=== PATIENT | male | born 1990 | race Caucasian/White ===

== ENCOUNTER 2023-08-02 12:50 | Emergency (ER) | payer OTHER, SELFPAY ==
[2023-08-02 13:00] VITALS: BP 161/89; PULSE 89; TEMP 37.7; O2SAT 99; BMI 43.2
[2023-08-02 13:31] LABS: Influenza Virus A Antigen Negative; Influenza Virus B Antigen Negative; Internal Control Within Normal Limits
--- NOTE | 2023-08-02 13:35 | PC.NURSE ---
no vomiting at this time while in ER, call light in reach and told not to eat or drink anything until seen by
--- NOTE | 2023-08-02 13:38 | ED.NAVMDI1 ---
HPI - Nausea/Vomiting/Diarrhea General Chief complaint: Nausea/Vomiting/Diarrhea Stated complaint: NAUSEA/VOMITING/DIARRHEA Time Seen by Provider: 08/02/23 13:35 Source: patient Mode of arrival: walk-in History of Present Illness HPI Narrative: The patient presenting to us with a few hours history of nausea vomiting and diarrhea that started this morning after he ate some pizza that he had outside for a while. The patient denies any abdominal pain no fever or chills or any cough Related Data Previous Rx's ?Medication ?Instructions ?Recorded ondansetron HCl 4 mg tablet 4 mg PO Q8H PRN nausea and 08/02/23 vomiting 2 days #7 tabs Allergies Allergy/AdvReac Type Severity Reaction Status Date / Time No Known Drug Allergies Allergy Verified 08/02/23 13:03 Review of Systems ROS Status of ROS 10 or more systems reviewed and unremarkable except as noted in history and below Exam Narrative Exam Narrative: Nurses notes and vital signs reviewed and patient is not hypoxic. General: Well-appearing and in no apparent distress. Skin: Warm, dry, no pallor noted. No rash. Head: Normocephalic, atraumatic. Neck: Supple, non-tender. Eye: Pupils are equal, round and EOMI. No scleral icterus. Ears, Nose, Mouth, and Throat: TM are clear, no nasal mucosal hypertrophy. Oral mucosa is moist, no posterior oropharynx erythema, uvula is mid-line Cardiovascular: Regular Rate and Rhythm without murmur, gallop or rub. Respiratory: No accessory muscle use or respiratory distress. Lungs are clear to auscultation, no wheezing, rales or rhonchi Chest Wall: no tenderness Back: No midline thoracic or lumbar vertebral tenderness. No CVA tenderness Musculoskeletal: normal ROM, no calf or popliteal tenderness, no lower extremity edema/swelling GI: Abdomen is soft, non-distended. Normal bowel sounds. No masses appreciated. No tenderness to palpation. No rebound, guarding, or rigidity noted. Neurological: A&O x4. No cranial nerve dysfunction observed. No truncal ataxia. Moves all extremities. Sensation intact. Psychiatric: Cooperative and interactive. Normal mood and affect. Constitutional Vital Signs, click to edit/add: Last Vital Signs Temp 99.8 F 08/02/23 13:00 Pulse 89 08/02/23 13:00 Resp 18 08/02/23 13:00 BP 161/89 H 08/02/23 13:00 Pulse Ox 99 08/02/23 13:00 Course Vital Signs Vital signs: Vital Signs Temperature 99.8 F 08/02/23 13:00 Pulse Rate 89 08/02/23 13:00 Respiratory Rate 18 08/02/23 13:00 Blood Pressure 161/89 H 08/02/23 13:00 Pulse Oximetry 99 08/02/23 13:00 Temperature 99.8 F 08/02/23 13:00 Pulse Rate 89 08/02/23 13:00 Respiratory Rate 18 08/02/23 13:00 Blood Pressure 161/89 H 08/02/23 13:00 Pulse Oximetry 99 08/02/23 13:00 MDM - Nausea/Vomiting/Diarrhea MDM Narrative Medical decision making narrative: The patient was provided with Zofran after which he had a p.o. challenge. The patient is to continue supportive care at home The patient is to follow up with primary care physician in next 2-3 days or to return to the emergency department should any of the signs or symptoms worsen or new symptoms develop. The patient agrees with the following Diagnosis and Treatment plan and the patient will be discharged home. Lab Data Labs: Lab Results 08/02/23 Range/Units 13:04 Influenza Type A Ag Negative Influenza Type B Ag Negative Discharge Plan Discharge Stand Alone Forms: Portal Instructions Chief Complaint: Nausea/Vomiting/Diarrhea Clinical Impression: Gastroenteritis Patient Disposition: Home, Self-Care Time of Disposition Decision: 13:55 Condition: Good Prescriptions / Home Meds: New ondansetron HCl 4 mg tablet 4 mg PO Q8H PRN (Reason: nausea and vomiting) 2 Days Qty: 7 0RF Print Language: Icelandic Instructions: Acute Nausea and Vomiting (DC) Referrals: Physician,Non-Staff, MD [Primary Care Provider] - 1 week
[2023-08-02] MEDS: ONDANSETRON 4 MG RAPDIS TABLET SL (13:48)
== END 2023-08-02 14:12 | disposition home or self-care (01) ==
PROVIDERS: Emergency Provider Emergency Medicine
DX: K52.9 Noninfective gastroenteritis and colitis, unspecified (principal)
CPT/HCPCS: 87804; 99283

== ENCOUNTER 2025-04-11 18:16 | Emergency (ER) | payer SELFPAY ==
[2025-04-11 18:24] VITALS: BP 133/96; PULSE 91; TEMP 37.1; O2SAT 95; BMI 44.1
--- NOTE | 2025-04-11 18:39 | ECG_ITS ---
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 Measurements Intervals [place] Rate: 80 P: 70 CO: 148 QRS: 39 QRSD: 98 T: 41 QT: 326 QTc: 363 Interpretive Statements 1100 Sinus rhythm 9110 normal ECG No previous ECG available for comparison Electronically Signed On 04-12-2025 19:59:58 EST by GARY BURGOS M.D.
--- NOTE | 2025-04-11 18:39 | XR_ITS ---
The [address] [address] Patient Name: CLARA TOUSSAINT MRN: [id number] date: 1990 Sex: M Assigned Patient Location: ED.MAIN Current Patient Location: ED.MAIN Accession/Order Number: [id number] Exam Date: 04/11/2025 19:05 Report Date: 04/11/2025 19:43 At the request of: BURTON GUTIÉRREZ Procedure: XR chest 1V PA CHEST: CLINICAL HISTORY: Cough, SOB, Crackles COMPARISON: None Low lung volumes with slight prominence of the cardiac silhouette. No focal airspace opacity effusion or pneumothorax. XR/XR chest 1V IMPRESSION: Negative for acute pleural-parenchymal disease Impression dictated by: Puneet Naranjo M.D. 04/11/2025 7:43 PM Dictation Location: [place] [address] Electronically authenticated by: [id number] Y Date: 04/11/2025 19:43
[2025-04-11 18:43] VITALS: PULSE 78
--- NOTE | 2025-04-11 18:43 | ED.GENADUL1 ---
HPI HPI - General Adult General Chief complaint: Shortness of Breath/Dyspnea Stated complaint: SOB, flu-like symptoms Time Seen by Provider: 04/11/25 18:31 Source: patient Mode of arrival: walk-in Limitations: no limitations History of Present Illness HPI narrative: Patient is a 34-year-old male with a PMH of asthma who presents with complaints of cough, wheezing, and shortness of breath that have been present for about a month and have worsened in the past week. He reports he has felt feverish about 2 times in the past week. He uses his albuterol inhaler at home as needed. He denies nausea, vomiting, or diarrhea. No chest or abdominal pain. He has some nasal congestion, denies sore throat. Related Data Previous Rx's ?Medication ?Instructions ?Recorded ondansetron HCl 4 mg tablet 4 mg PO Q8H PRN nausea and 08/02/23 vomiting 2 days #7 tabs benzonatate 100 mg capsule 100 mg PO BID PRN cough #20 caps 04/11/25 prednisone 50 mg tablet 50 mg PO DAILY 5 days #5 tabs 04/11/25 Allergies Allergy/AdvReac Type Severity Reaction Status Date / Time No Known Drug Allergies Allergy Verified 08/02/23 13:03 Review of Systems ROS Status of ROS 10 or more systems reviewed and unremarkable except as noted in history and below PFSH PFSH Social History Little interest or pleasure in doing things: not at all Feeling down, depressed, or hopeless: not at all Exam Narrative Exam Narrative: General: No distress, age-appropriate Skin: Warm, dry, no pallor. No rash. Head: Normocephalic, atraumatic. Neck: Supple, non-tender. Eye: Pupils are equal, round and EOMI. No scleral icterus. Ears, Nose, Mouth, and Throat: No nasal mucosal hypertrophy. Oral mucosa is moist, no posterior oropharynx erythema, uvula is mid-line Cardiovascular: Regular Rate and Rhythm without murmur, gallop or rub. Respiratory: No accessory muscle use or respiratory distress. Lungs are clear to auscultation, no wheezing or rales, mild rhonchi noted RUL Chest Wall: no tenderness Musculoskeletal: Full ROM of all extremities, no calf or popliteal tenderness GI: Abdomen is soft, non-distended, non tender to palpation. No masses appreciated. No rebound, guarding, or rigidity noted. Neurological: A&O x4. No cranial nerve dysfunction observed. No truncal ataxia. Moves all extremities. Sensation intact. Psychiatric: Cooperative and interactive. Normal mood and affect. Constitutional Vital Signs, click to edit/add: Last Vital Signs Temp 98.7 F 04/11/25 18:24 Pulse 78 04/11/25 20:17 Resp 18 04/11/25 20:17 BP 133/96 H 04/11/25 18:24 Pulse Ox 99 04/11/25 20:17 O2 Del Method Room Air 04/11/25 20:17 Documenting provider has reviewed patient's vital signs: yes Course Vital Signs Vital signs: Vital Signs Temperature 98.7 F 04/11/25 18:24 Pulse Rate 91 H 04/11/25 18:24 Respiratory Rate 18 04/11/25 18:24 Blood Pressure 133/96 H 04/11/25 18:24 Pulse Oximetry 95 04/11/25 18:24 Oxygen Delivery Method Room Air 04/11/25 18:24 Temperature 98.7 F 04/11/25 18:24 Pulse Rate 78 04/11/25 20:17 Respiratory Rate 18 04/11/25 20:17 Blood Pressure 133/96 H 04/11/25 18:24 Pulse Oximetry 99 04/11/25 20:17 Oxygen Delivery Method Room Air 04/11/25 20:17 Medical Decision Making MDM Narrative Medical decision making narrative: The patient is a 34-year-old male with a history of asthma presenting with a one-month history of cough, wheezing, and shortness of breath, which acutely worsened over the past week. He reported intermittent subjective fevers. Vital signs in the ED were stable.patient in no respiratory distress and speaking in full clear sentences. Afebrile here, 99% O2 saturations on room air. Mild posterior RUL rhonchi on auscultation, otherwise lungs clear, no wheezing or rails. Dry cough on exam. Chest X-ray was negative for acute pleural or parenchymal disease. EKG showed normal sinus rhythm without ischemic changes. COVID-19 and influenza tests were negative. The patient received a 2.5 mg albuterol nebulizer treatment and 60 mg prednisone in the ED, with improvement in symptoms. Rhonchi resolved on reexamination. Given his clinical presentation, negative imaging, and viral studies, the most likely diagnosis is an asthma exacerbation, likely triggered by a viral upper respiratory infection. No evidence of pneumonia or other acute cardiopulmonary pathology was identified. He was discharged with a 5-day prednisone burst (50 mg daily), Tessalon perles for cough, and instructions to continue rescue inhaler use as needed, along with close follow-up with his primary care provider. He was counseled on warning signs that should prompt immediate return to the ED. Patient discharged in stable condition with close PCP follow-up. Differential Diagnosis Differential Diagnosis: Viral URI, asthma exacerbation, bacterial bronchitis, CAP Lab Data Lab results reviewed: Yes I reviewed the patient's lab results Labs: Lab Results 04/11/25 Range/Units 18:39 Influenza Type A Ag Negative Influenza Type B Ag Negative SARS-CoV-2 Ag (CV2AG) Negative (NEGATIVE) Imaging Data Chest x-ray: Attestation: I have reviewed the pertinent imaging results. Radiologist's impression: ITS Impressions Chest X-Ray 04/11/25 18:39 IMPRESSION: Negative for acute pleural-parenchymal disease Impression dictated by: Puneet Naranjo M.D. 04/11/2025 7:43 PM Dictation Location: [facility] Electronically authenticated by: [id number] Y Date: 04/11/2025 19:43 Discharge Plan Discharge Chief Complaint: Shortness of Breath/Dyspnea Clinical Impression: Acute bronchitis, Asthma Patient Disposition: Home, Self-Care Time of Disposition Decision: 20:37 Condition: Good Mode of Transportation: Private Vehicle Prescriptions / Home Meds: New prednisone 50 mg tablet 50 mg PO DAILY 5 Days Qty: 5 0RF benzonatate 100 mg capsule 100 mg PO BID PRN (Reason: cough) Qty: 20 0RF No Action ondansetron HCl 4 mg tablet 4 mg PO Q8H PRN (Reason: nausea and vomiting) 2 Days Qty: 7 0RF Print Language: Greenlandic Instructions: Acute Bronchitis (ED) Referrals: Physician,Non-Staff, MD [Physician] - 1 week Discharge Date/Time: 04/11/25 20:56
[2025-04-11 18:58] LABS: SARS-CoV-2 Ag NEGATIVE (NEGATIVE)
[2025-04-11] MEDS: PREDNISONE 20 MG TABLET 60 MG PO (20:07)
[2025-04-11 20:17] VITALS: PULSE 78; O2SAT 99
[2025-04-11] MEDS: ALBUTEROL SULFATE 2.5 MG/3 ML VIAL NEB IH (20:17)
== END 2025-04-11 20:56 | disposition home or self-care (01) ==
PROVIDERS: Physician Assistant; Emergency Provider Emergency Medicine; PCP Family Medicine
DX: J20.9 Acute bronchitis, unspecified (principal); J45.909 Unspecified asthma, uncomplicated
CPT/HCPCS: 71045; 87804; 87811; 93005; 94640; 99284; 99285; J7512